=== PATIENT | male | born 1990 ===

== ENCOUNTER 2017-03-25 22:51 | Emergency (ER) | payer SELFPAY ==
[2017-03-25 22:51] VITALS: BMI 32.1
[2017-03-25 23:29] VITALS: BP 142/86; RESP 16; TEMP 98.2; O2SAT 98
--- NOTE | 2017-03-26 00:35 | ED PDOC ---
HPI: Abdomen Time Seen by Provider: 03/26/17 00:03 Chief Complaint (Nursing): Abdominal Pain Chief Complaint (Provider): abdominal pain History Per: Patient History/Exam Limitations: no limitations Onset/Duration Of Symptoms: Days Current Symptoms Are (Timing): Still Present Location Of Pain/Discomfort: Diffuse Quality Of Discomfort: Cramping, "Pain" Additional History Per: Patient Additional Complaint(s): 26 y/o male presents for eval of abdominal pain x years, worse x 2 days. Patient states he feels like his intestines "exploded". Denies fever, nausea/ vomiting, changes in bowel movements, recent travel, sick contacts, urinary symptoms. Patient also notes pain to right ear x 3 days. Denies fever, drainage from ear , hearing changes. Past Medical History Reviewed: Historical Data, Nursing Documentation, Vital Signs Vital Signs: Last Vital Signs Temp 98.2 F 03/25/17 23:27 Pulse 113 H 03/25/17 23:27 Resp 16 03/25/17 23:27 BP 142/86 03/25/17 23:27 Pulse Ox 98 03/26/17 00:35 - Medical History PMH: No Chronic Diseases - Surgical History Surgical History: No Surg Hx - Family History Family History: States: Unknown Family Hx - Immunization History Hx Tetanus Toxoid Vaccination: No Hx Influenza Vaccination: No Hx Pneumococcal Vaccination: No - Home Medications Home Medications: Ambulatory Orders Medication Instructions Recorded Dicyclomine [Bentyl] 20 mg PO QID PRN #20 tab 10/16/16 Dicyclomine [Bentyl] 20 mg PO TID PRN #21 tab 03/26/17 Neomycin/Polymyxin/Hydrocortis 4 drop OT TID #1 bottle 03/26/17 [Cortisporin Otic Susp] - Allergies Allergies/Adverse Reactions: Allergies Allergy/AdvReac Type Severity Reaction Status Date / Time No Known Allergies Allergy Verified 10/16/16 19:03 Review of Systems ROS Statement: Except As Marked, All Systems Reviewed And Found Negative ENT: Positive for: Ear Pain Gastrointestinal: Positive for: Abdominal Pain Physical Exam - Reviewed Nursing Documentation Reviewed: Yes Vital Signs Reviewed: Yes - Physical Exam Appears: Positive for: Well, Non-toxic, No Acute Distress Head Exam: Positive for: ATRAUMATIC, NORMAL INSPECTION, NORMOCEPHALIC Skin: Positive for: Normal Color Eye Exam: Positive for: Normal appearance ENT: Positive for: TM Is/Are (right EAC edematous, tender with speculum insertion and pulling of pinna. TM clear. Left EAC and TM clear.) Cardiovascular/Chest: Positive for: Regular Rate, Rhythm Respiratory: Positive for: Normal Breath Sounds Gastrointestinal/Abdominal: Positive for: Bowel Sounds, Soft, Tenderness (luq, mild) Back: Positive for: Normal Inspection Extremity: Positive for: Normal ROM Neurologic/Psych: Positive for: Alert, Oriented - Laboratory Results Result Diagrams: 03/26/17 01:01 03/26/17 01:01 - ECG O2 Sat by Pulse Oximetry: 98 - Progress ED Course And Treament: labs, urine, CT abd/pelvis Disposition - Clinical Impression Clinical Impression: Abdominal pain, Otitis externa - Patient ED Disposition Is Patient to be Admitted: No Counseled Patient/Family Regarding: Studies Performed, Diagnosis, Need For Followup, Rx Given - Disposition Referrals: [facility] [Outside] Disposition: Routine/Home Disposition Time: 04:15 Condition: IMPROVED Prescriptions: Dicyclomine [Bentyl] 20 mg PO TID PRN #21 tab PRN Reason: Pain, Mild (1-3) Neomycin/Polymyxin/Hydrocortis [Cortisporin Otic Susp] 4 drop OT TID #1 bottle Instructions: Abdominal Pain (ED), Otitis Externa (ED)
[2017-03-26 01:04] LABS: BASO # 0.1 K/uL (0.0-0.2); BASO % 0.7 % (0.0-2.0); EOS % 0.3 % (0.0-4.0); HEMATOCRIT 42.1 % (35.0-51.0); LYMPH # 2.5 K/uL (1.0-4.3); LYMPH % 19.8 % (20.0-40.0); MEAN CELL VOLUME 91.8 fl (80.0-94.0); MEAN CORPUSCULAR HEMOGLOBIN 30.8 pg (27.0-31.0); MEAN CORPUSCULAR HGB CONC 33.6 g/dL (33.0-37.0); MEAN PLATELET VOLUME 7.7 fl (7.2-11.7); MONO # 1.1 K/uL (0.0-0.8); MONO % 8.8 % (0.0-10.0); NEUT # 8.7 K/uL (1.8-7.0); NEUT % 70.4 % (50.0-75.0); RED CELL DISTRIBUTION WIDTH 13.3 % (11.5-14.5); WHITE BLOOD COUNT 12.4 K/uL (4.8-10.8)
[2017-03-26 01:12] LABS: ALB/GLOB RATIO 1.3 (1.0-2.1); ALKALINE PHOSPHATASE 110 U/L (38-126); ALT/SGPT 38 U/L (21-72); AST/SGOT 27 U/L (17-59); BILIRUBIN,TOTAL 0.7 mg/dl (0.2-1.3); BLOOD UREA NITROGEN 10 mg/dl (9-20); CALCIUM 9.4 mg/dL (8.4-10.2); CARBON DIOXIDE 25 mmol/L (22-30); CHLORIDE 103 mmol/L (98-107); GFR AFRICAN-AMERICAN > 60; GLUCOSE,RANDOM 95 mg/dL (75-110); LIPASE 37 U/L (23-300); POTASSIUM 3.8 MMOL/L (3.6-5.0); SODIUM 144 mmol/l (132-148); TOTAL PROTEIN 7.9 G/DL (6.3-8.2)
[2017-03-26] MEDS ORDERED: Iohexol 240 (50 ml) PO ONE (01:32)
[2017-03-26] MEDS ORDERED: Iohexol 240 (50 ml) ONE (01:57)
[2017-03-26 02:46] LABS: RBC URINE 3 /hpf (0-3); URINE BACTERIA RARE (<OCC); URINE BILIRUBIN NEGATIVE (NEGATIVE); URINE BLOOD SMALL (NEGATIVE); URINE COLOR YELLOW (YELLOW); URINE GLUCOSE (UA) NEG (Normal); URINE KETONE NEGATIVE (NEGATIVE); URINE LEUKOCYTE ESTERASE NEG Leu/uL (Negative); URINE PROTEIN NEGATIVE (NEGATIVE); URINE UROBILINOGEN 0.2-1.0 mg/dL (0.2-1.0); WBC URINE 2 /hpf (0-5)
[2017-03-26] MEDS ORDERED: Iohexol 300 100 ML IJ ONE (02:56)
[2017-03-26] MEDS ORDERED: Sodium Chloride 0.9% 50 ML IV ONE (02:57)
[2017-03-26 04:30] VITALS: PULSE 98
--- NOTE | 2017-03-26 10:37 | CT ---
PROCEDURE: CT Abdomen and Pelvis with contrast HISTORY: abdominal pain COMPARISON: None. TECHNIQUE: Contrast dose: 95 mL Omnipaque 300 Radiation dose: Total exam DLP = 1077.83 mGy-cm. This CT exam was performed using one or more of the following dose reduction techniques: Automated exposure control, adjustment of the mA and/or kV according to patient size, and/or use of iterative reconstruction technique. FINDINGS: LOWER THORAX: Unremarkable. LIVER: Unremarkable. No gross lesion or ductal dilatation. GALLBLADDER AND BILE DUCTS: Unremarkable. PANCREAS: Unremarkable. No gross lesion or ductal dilatation. SPLEEN: Unremarkable. ADRENALS: Unremarkable. No mass. KIDNEYS AND URETERS: Unremarkable. No hydronephrosis. No solid mass. VASCULATURE: Unremarkable. No aortic aneurysm. BOWEL: Unremarkable. No obstruction. No gross mural thickening. APPENDIX: Normal appendix. PERITONEUM: Unremarkable. No free fluid. No free air. LYMPH NODES: Unremarkable. No enlarged lymph nodes. BLADDER: Unremarkable. REPRODUCTIVE: Normal prostate and seminal vesicles. BONES: No acute fracture. OTHER FINDINGS: None. IMPRESSION: Unremarkable contrast enhanced CT of the abdomen and pelvis. Preliminary interpretation of this examination was reported by [facility] at 3:36 a.m. on 03/26/2017. There is concurrence of this report with the preliminary interpretation.
== END 2017-03-26 04:17 | disposition home or self-care (01) ==
LOC: H.ER 22:51
DX: R10.9 Unspecified abdominal pain (principal); H60.91 Unspecified otitis externa, right ear
CPT/HCPCS: 74177; 80053; 81003; 83690; 85025; 87086; 99282; Q9966; Q9967

== ENCOUNTER 2017-08-22 11:53 | Emergency (ER) | payer SELFPAY ==
[2017-08-22 12:09] VITALS: BMI 30.7
[2017-08-22 12:10] VITALS: BP 132/84; PULSE 102; RESP 20; TEMP 98.8; O2SAT 98
--- NOTE | 2017-08-22 12:29 | ED PDOC ---
HPI: Abdomen Time Seen by Provider: 08/22/17 12:27 Chief Complaint (Nursing): Abdominal Pain Chief Complaint (Provider): abd pain History Per: Patient Additional Complaint(s): 26-year-old male presents to emergency department complaining of right-sided abdominal pain that started yesterday. Patient has had similar abdominal pain in the past intermittently for 3-4 years. He denies nausea, vomiting, diarrhea or constipation. No fever or chills. No dysuria or hematuria. He rates current pain as a 4 out of 10. Patient states he thinks he might have "a hole in his intestine." PMD: none Past Medical History Reviewed: Historical Data, Nursing Documentation, Vital Signs Vital Signs: Last Vital Signs Temp 98.8 F 08/22/17 12:09 Pulse 102 H 08/22/17 12:09 Resp 20 08/22/17 12:09 BP 132/84 08/22/17 12:09 Pulse Ox 98 08/22/17 17:15 - Medical History PMH: No Chronic Diseases - Surgical History Surgical History: No Surg Hx - Family History Family History: States: No Known Family Hx - Living Arrangements Living Arrangements: With Family - Social History Current smoker - smoking cessation education provided: No Alcohol: None Drugs: Denies - Home Medications Home Medications: Ambulatory Orders Medication Instructions Recorded Dicyclomine [Bentyl] 20 mg PO QID PRN #20 tab 10/16/16 Dicyclomine [Bentyl] 20 mg PO TID PRN #21 tab 03/26/17 Neomycin/Polymyxin/Hydrocortis 4 drop OT TID #1 bottle 03/26/17 [Cortisporin Otic Susp] - Allergies Allergies/Adverse Reactions: Allergies Allergy/AdvReac Type Severity Reaction Status Date / Time No Known Allergies Allergy Verified 10/16/16 19:03 Review of Systems ROS Statement: Except As Marked, All Systems Reviewed And Found Negative Constitutional: Negative for: Fever, Chills Cardiovascular: Negative for: Chest Pain Respiratory: Negative for: Cough Gastrointestinal: Positive for: Abdominal Pain. Negative for: Nausea, Vomiting , Diarrhea Genitourinary Male: Negative for: Dysuria, Frequency, Incontinence, Hematuria Physical Exam - Reviewed Nursing Documentation Reviewed: Yes Vital Signs Reviewed: Yes - Physical Exam Appears: Positive for: Well, Non-toxic, No Acute Distress Skin: Negative for: Rash Eye Exam: Positive for: Normal appearance Cardiovascular/Chest: Positive for: Regular Rate, Rhythm Respiratory: Positive for: Normal Breath Sounds Gastrointestinal/Abdominal: Positive for: Tenderness (Mild to RUQ). Negative for: Distended, Guarding, Rebound Back: Negative for: L CVA Tenderness, R CVA Tenderness Extremity: Positive for: Normal ROM Neurologic/Psych: Positive for: Alert, Oriented - Laboratory Results Result Diagrams: 08/22/17 14:50 08/22/17 14:50 Urine dip results: Negative for: Leukocyte Esterase, Blood, Nitrate, Ketones, Glucose, Bilirubin, Protein - ECG O2 Sat by Pulse Oximetry: 98 Pulse Ox Interpretation: Normal - Other Rad Abd US X-Ray: Read By Radiologist X-Ray Interpretation: see below Medical Decision Making Medical Decision Makin26 year old with abd pain Plan: CBC CMP Lipase urine dip Abd US Pain meds declined US: FINDINGS: LIVER: Measures 15.1 cm. There is diffuse increased echogenicity of the liver parenchyma. No mass. No intrahepatic bile duct dilatation. GALLBLADDER: The gallbladder is well distended. There are no gallstones, wall thickening or pericholecystic fluid. There are 2 polypoid echogenic nonmobile non shadowing lesion in the anterior wall measuring 5 mm and posterior wall measuring 6 mm and 5 mm. COMMON BILE DUCT: Measures 4.2 mm. No stones. No dilatation. PANCREAS: Obscured by bowel gas. RIGHT KIDNEY: Measures 11.2cm. Normal echogenicity. No calculus, mass, or hydronephrosis. LEFT KIDNEY: Measures 11.8cm. Normal echogenicity. No calculus, mass, or hydronephrosis. SPLEEN: Normal in size and contour. No mass. AORTA: No aneurysmal dilatation. IVC: Unremarkable. OTHER FINDINGS: None. IMPRESSION: Diffuse increased echogenicity in the liver may reflect hepatic steatosis however parenchymal infectious/ inflammatory etiologies cannot be entirely excluded. Clinical and laboratory correlation is advised. No cholelithiasis or biliary dilatation. 5 mm polyp in the anterior gallbladder wall and 6 mm polyp in the posterior gallbladder wall. Patient is aware of diagnostic testing results. All questions answered. Patient instructed to take Tylenol for pain and was referred to clinic for follow-up. Copy of ultrasound report was provided to patient. Patient made aware of incidental findings of gallbladder polyps and need for follow up. Disposition - Clinical Impression Clinical Impression: Abdominal pain - Patient ED Disposition Is Patient to be Admitted: No Counseled Patient/Family Regarding: Studies Performed, Need For Followup - Disposition Referrals: [facility] [Outside] Disposition: Routine/Home Disposition Time: 16:40 Condition: STABLE Additional Instructions: Tylenol for pain as needed. Follow-up with clinic for further evaluation. Instructions: Acute Abdomen (Belly Pain), Adult (DC) Forms: [employer] (Yi) Results - Lab Results Lab Results: 08/22/17 08/22/17 14:50 14:50 WBC 8.9 RBC 4.52 Hgb 14.5 Hct 42.2 MCV 93.5 MCH 32.0 H MCHC 34.3 RDW 13.8 Plt Count 283 MPV 8.2 Neut % (Auto) 67.2 Lymph % (Auto) 26.4 [place] % (Auto) 5.3 Eos % (Auto) 0.4 Baso % (Auto) 0.7 Neut # (Auto) 6.0 Lymph # (Auto) 2.4 [place] # (Auto) 0.5 Eos # (Auto) 0.0 Baso # (Auto) 0.1 Sodium 145 Potassium 4.3 Chloride 103 Carbon Dioxide 28 Anion Gap 18 BUN 15 Creatinine 0.7 L Est GFR ( Amer) > 60 Est GFR (Non-Af Amer) > 60 Random Glucose 98 Calcium 9.4 Total Bilirubin 0.5 AST 27 ALT 40 Alkaline Phosphatase 96 Total Protein 7.6 Albumin 4.3 Globulin 3.3 Albumin/Globulin Ratio 1.3 Lipase 43
[2017-08-22] MEDS ORDERED: Sodium Chloride 0.9% 1,000 ML IV STA (13:33)
--- NOTE | 2017-08-22 14:58 | US ---
HISTORY: Abdominal pain COMPARISON: None. TECHNIQUE: Grayscale imaging was performed. FINDINGS: LIVER: Measures 15.1 cm. There is diffuse increased echogenicity of the liver parenchyma. No mass. No intrahepatic bile duct dilatation. GALLBLADDER: The gallbladder is well distended. There are no gallstones, wall thickening or pericholecystic fluid. There are 2 polypoid echogenic nonmobile non shadowing lesion in the anterior wall measuring 5 mm and posterior wall measuring 6 mm and 5 mm. COMMON BILE DUCT: Measures 4.2 mm. No stones. No dilatation. PANCREAS: Obscured by bowel gas. RIGHT KIDNEY: Measures 11.2cm. Normal echogenicity. No calculus, mass, or hydronephrosis. LEFT KIDNEY: Measures 11.8cm. Normal echogenicity. No calculus, mass, or hydronephrosis. SPLEEN: Normal in size and contour. No mass. AORTA: No aneurysmal dilatation. IVC: Unremarkable. OTHER FINDINGS: None. IMPRESSION: Diffuse increased echogenicity in the liver may reflect hepatic steatosis however parenchymal infectious/ inflammatory etiologies cannot be entirely excluded. Clinical and laboratory correlation is advised. No cholelithiasis or biliary dilatation. 5 mm polyp in the anterior gallbladder wall and 6 mm polyp in the posterior gallbladder wall.
[2017-08-22 15:13] LABS: BASO # 0.1 K/uL (0.0-0.2); BASO % 0.7 % (0.0-2.0); EOS % 0.4 % (0.0-4.0); HEMOGLOBIN 14.5 g/dL (12.0-18.0); LYMPH # 2.4 K/uL (1.0-4.3); LYMPH % 26.4 % (20.0-40.0); MEAN CELL VOLUME 93.5 fl (80.0-94.0); MEAN CORPUSCULAR HGB CONC 34.3 g/dL (33.0-37.0); MEAN PLATELET VOLUME 8.2 fl (7.2-11.7); MONO # 0.5 K/uL (0.0-0.8); MONO % 5.3 % (0.0-10.0); NEUT % 67.2 % (50.0-75.0); NRBC % 0.1 % (0.0-0.0); RBC 4.52 Mil/uL (4.40-5.90); RED CELL DISTRIBUTION WIDTH 13.8 % (11.5-14.5); WHITE BLOOD COUNT 8.9 K/uL (4.8-10.8)
[2017-08-22 15:57] LABS: ALB/GLOB RATIO 1.3 (1.0-2.1); ALBUMIN 4.3 g/dL (3.5-5.0); ALT/SGPT 40 U/L (21-72); AST/SGOT 27 U/L (17-59); BLOOD UREA NITROGEN 15 mg/dl (9-20); CALCIUM 9.4 mg/dL (8.4-10.2); GFR AFRICAN-AMERICAN > 60; GFR NON-AFRICAN AMERICAN > 60; LIPASE 43 U/L (23-300)
== END 2017-08-22 17:06 | disposition home or self-care (01) ==
LOC: H.ER 11:53
DX: R10.9 Unspecified abdominal pain (principal); K82.4 Cholesterolosis of gallbladder
CPT/HCPCS: 76700; 80053; 83690; 85025; 96360; 99282; J7040

== ENCOUNTER 2017-10-10 12:01 | Emergency (ER) | payer OTHER ==
[2017-10-10 12:26] VITALS: BMI 31.5
--- NOTE | 2017-10-10 12:35 | ED PDOC ---
HPI: Male Pain Time Seen by Provider: 10/10/17 12:33 Chief Complaint (Nursing): Male Genitourinary Chief Complaint (Provider): URINARY HESITANCY History Per: Patient (27 Y/O MALE HERE WITH URINARY HESITANCY/FREQUENCY NOTED AFTER ANAL MANIPULATION WITH FINGER. NOTES DISCOMFORT IN REGION BY PROSTATE AND CONCERNED HE HAS PROSTATIS. DENIES ANY FEVERS/CHILLS. DENIES ANY CONCERN OF OBJECT STUCK IN RECTUM.) Past Medical History Reviewed: Historical Data, Nursing Documentation, Vital Signs Vital Signs: Last Vital Signs Temp 98.6 F 10/10/17 12:29 Pulse 93 H 10/10/17 12:29 Resp 21 10/10/17 12:29 BP 138/83 10/10/17 12:29 Pulse Ox 97 10/10/17 12:29 - Family History Family History: States: Unknown Family Hx - Immunization History Hx Tetanus Toxoid Vaccination: No Hx Influenza Vaccination: No Hx Pneumococcal Vaccination: No - Home Medications Home Medications: Ambulatory Orders Medication Instructions Recorded Dicyclomine [Bentyl] 20 mg PO QID PRN #20 tab 10/16/16 Dicyclomine [Bentyl] 20 mg PO TID PRN #21 tab 03/26/17 Neomycin/Polymyxin/Hydrocortis 4 drop OT TID #1 bottle 03/26/17 [Cortisporin Otic Susp] Ciprofloxacin HCl [Cipro] 500 mg PO BID #14 tablet 10/10/17 - Allergies Allergies/Adverse Reactions: Allergies Allergy/AdvReac Type Severity Reaction Status Date / Time No Known Allergies Allergy Verified 10/16/16 19:03 Review of Systems ROS Statement: Except As Marked, All Systems Reviewed And Found Negative Physical Exam - Reviewed Nursing Documentation Reviewed: Yes Vital Signs Reviewed: Yes - Physical Exam Appears: Positive for: Well, Non-toxic, No Acute Distress Head Exam: Positive for: ATRAUMATIC, NORMAL INSPECTION, NORMOCEPHALIC Skin: Positive for: Normal Color, Warm, DRY Eye Exam: Positive for: EOMI, Normal appearance, PERRL ENT: Positive for: Normal ENT Inspection Neck: Positive for: Normal, Painless ROM Cardiovascular/Chest: Positive for: Regular Rate, Rhythm Respiratory: Positive for: CNT, Normal Breath Sounds Gastrointestinal/Abdominal: Positive for: Normal Exam, Soft Back: Positive for: Normal Inspection Rectal: Positive for: Other (NONTENDER PROSTATE.) Extremity: Positive for: Normal ROM Neurologic/Psych: Positive for: Alert, Oriented - ECG O2 Sat by Pulse Oximetry: 97 Disposition - Clinical Impression Clinical Impression: Urinary hesitancy - Patient ED Disposition Is Patient to be Admitted: No - Disposition Referrals: Garrett Eason MD [Staff Provider] - Disposition: Routine/Home Disposition Time: 13:41 Condition: FAIR Prescriptions: Ciprofloxacin HCl [Cipro] 500 mg PO BID #14 tablet Instructions: Dysuria, Adult (DC) Forms: [employer] ([place])
[2017-10-10 13:28] LABS: SQUAMOUS EPITHIAL < 1 /hpf (0-5); URINE BILIRUBIN NEGATIVE (NEGATIVE); URINE BLOOD NEGATIVE (NEGATIVE); URINE CLARITY CLEAR (Clear); URINE COLOR YELLOW (YELLOW); URINE GLUCOSE (UA) NEG (Normal); URINE LEUKOCYTE ESTERASE NEG Leu/uL (Negative); URINE PROTEIN NEGATIVE (NEGATIVE); URINE UROBILINOGEN 0.2-1.0 mg/dL (0.2-1.0)
[2017-10-10 14:02] VITALS: BP 122/67; PULSE 78; RESP 17; TEMP 98; O2SAT 100
== END 2017-10-10 14:48 | disposition home or self-care (01) ==
LOC: H.ER 12:01
DX: N39.0 Urinary tract infection, site not specified (principal)

== ENCOUNTER 2017-10-29 09:47 | Emergency (ER) | payer OTHER ==
[2017-10-29 09:48] VITALS: BMI 31.5
[2017-10-29] MEDS ORDERED: Iohexol 240 (50 ml) ONE (11:03)
--- NOTE | 2017-10-29 11:04 | ED PDOC ---
HPI: Abdomen Time Seen by Provider: 10/29/17 10:31 Chief Complaint (Nursing): Abdominal Pain Chief Complaint (Provider): abd pain History Per: Patient History/Exam Limitations: no limitations Onset/Duration Of Symptoms: Days (4 yrs) Current Symptoms Are (Timing): Still Present Additional Complaint(s): Pt. with abd pain epigastric for 4 yrs. Not new pain today. States for few days increased pain. Has meds from a doctor he was for the pain and took 1 with no relief. No weakness. Nausea, no vomit or diarrhea. No back pain, dyspnea, chest pain, dizziness, testicular pain. No fever. No new food or drinks. Past Medical History Reviewed: Nursing Documentation, Vital Signs Vital Signs: Last Vital Signs Temp 98 F 10/29/17 10:12 Pulse 102 H 10/29/17 10:12 Resp BP 134/82 10/29/17 10:12 Pulse Ox 98 10/29/17 11:13 - Medical History PMH: Asthma Other PMH: chronic abd pain - Family History Family History: States: Unknown Family Hx - Immunization History Hx Tetanus Toxoid Vaccination: No Hx Influenza Vaccination: No Hx Pneumococcal Vaccination: No - Home Medications Home Medications: Ambulatory Orders Medication Instructions Recorded Dicyclomine [Bentyl] 20 mg PO QID PRN #20 tab 10/16/16 Dicyclomine [Bentyl] 20 mg PO TID PRN #21 tab 03/26/17 Neomycin/Polymyxin/Hydrocortis 4 drop OT TID #1 bottle 03/26/17 [Cortisporin Otic Susp] Ciprofloxacin HCl [Cipro] 500 mg PO BID #14 tablet 10/10/17 Famotidine [Pepcid] 20 mg PO DAILY PRN #6 tab 10/29/17 - Allergies Allergies/Adverse Reactions: Allergies Allergy/AdvReac Type Severity Reaction Status Date / Time No Known Allergies Allergy Verified 10/16/16 19:03 Review of Systems ROS Statement: Except As Marked, All Systems Reviewed And Found Negative Gastrointestinal: Positive for: Nausea, Abdominal Pain Physical Exam - Reviewed Nursing Documentation Reviewed: Yes Vital Signs Reviewed: Yes - Physical Exam Appears: Positive for: Non-toxic, No Acute Distress Head Exam: Positive for: ATRAUMATIC, NORMAL INSPECTION, NORMOCEPHALIC Skin: Positive for: Normal Color, Warm, DRY Eye Exam: Positive for: EOMI, Normal appearance, PERRL ENT: Positive for: Normal ENT Inspection Neck: Positive for: Normal, Painless ROM Cardiovascular/Chest: Positive for: Regular Rate, Rhythm Respiratory: Positive for: CNT, Normal Breath Sounds Gastrointestinal/Abdominal: Positive for: Bowel Sounds, Soft, Tenderness ( epigrastic) Back: Positive for: Normal Inspection. Negative for: L CVA Tenderness, R CVA Tenderness Extremity: Positive for: Normal ROM. Negative for: Tenderness, Pedal Edema Neurologic/Psych: Positive for: Alert, Oriented - Laboratory Results Result Diagrams: 10/29/17 11:20 10/29/17 11:20 Interpretation Of Abn Labs: no acute - ECG O2 Sat by Pulse Oximetry: 98 Pulse Ox Interpretation: Normal - Progress ED Course And Treament: 1420: Stable. AAOx3. Pain free. Tolerated po. Fu with pcp. Chronic pain ongoing for 4 years. Disposition - Clinical Impression Clinical Impression: Abdominal pain - Patient ED Disposition Is Patient to be Admitted: No Counseled Patient/Family Regarding: Studies Performed, Diagnosis, Need For Followup, Rx Given - Disposition Referrals: [facility] [Outside] - 10/30/17 Jignesh Barnett MD [Staff Provider] - 10/30/17 Disposition: Routine/Home Disposition Time: 14:40 Condition: STABLE Additional Instructions: Return if not better in 3 days. Prescriptions: Famotidine [Pepcid] 20 mg PO DAILY PRN #6 tab PRN Reason: Pain Instructions: Chronic Pain (DC) Forms: [employer] ([place]), [facility] ED School/Work Excuse
[2017-10-29] MEDS: Iohexol 240 (50 ml) PO ONE (11:13)
[2017-10-29] MEDS: Sodium Chloride 0.9% 1,000 ML IV STA (11:24)
[2017-10-29 11:38] LABS: BASO % 0.4 % (0.0-2.0); EOS % 0.4 % (0.0-4.0); HEMOGLOBIN 15.8 g/dL (12.0-18.0); LYMPH # 1.6 K/uL (1.0-4.3); LYMPH % 22.8 % (20.0-40.0); MEAN CELL VOLUME 93.5 fl (80.0-94.0); MEAN CORPUSCULAR HEMOGLOBIN 31.6 pg (27.0-31.0); MEAN CORPUSCULAR HGB CONC 33.9 g/dL (33.0-37.0); MEAN PLATELET VOLUME 8.5 fl (7.2-11.7); MONO # 0.3 K/uL (0.0-0.8); NEUT # 4.9 K/uL (1.8-7.0); NEUT % 71.4 % (50.0-75.0); WHITE BLOOD COUNT 6.9 K/uL (4.8-10.8)
[2017-10-29 11:51] LABS: ALB/GLOB RATIO 1.2 (1.0-2.1); ALBUMIN 4.4 g/dL (3.5-5.0); ALT/SGPT 51 U/L (21-72); AST/SGOT 25 U/L (17-59); BLOOD UREA NITROGEN 18 mg/dl (9-20); CALCIUM 9.3 mg/dL (8.4-10.2); GFR AFRICAN-AMERICAN > 60; GFR NON-AFRICAN AMERICAN > 60; LIPASE 36 U/L (23-300)
[2017-10-29 15:57] VITALS: BP 117/65; PULSE 84; RESP 19; TEMP 99; O2SAT 97
== END 2017-10-29 15:59 | disposition home or self-care (01) ==
LOC: H.ER 09:47
DX: R10.13 Epigastric pain (principal)
CPT/HCPCS: 80053; 83690; 85025; 96361; 96374; 96375; 99283; J1885; J7040